=== PATIENT | female | born 1955 | race Caucasian/White ===

== ENCOUNTER → 2019-03-30 | Outpatient (CLI) | payer OTHER ==
[~2019-03-30] MED LIST: DULO30; ESTR2 PO; FISH OIL 1,0001 EAC1 PO; Glucosamine Ch1 EAC2 PO; MAGNESIUM PO; METAXALL800 MG PO; MILK THISTLE1 GM PO; Norco 10-325 T1 EACH PO; VENL75ER PO; VITAMIN B125000 MCG PO; Vitamin C100 M1 PO; [UNRECOGNIZED DRUG - OTHER] PO
== END | disposition home or self-care (01) ==
LOC: PLD 15:19 → LAB SHORT 15:19
DX: L57.0 Actinic keratosis (principal)
CPT/HCPCS: 88305; 88342